=== PATIENT | female | born 1985 | race Caucasian/White ===

== ENCOUNTER 2017-01-04 18:48 | Emergency (ER) | payer OTHER ==
[2017-01-04] MEDS ORDERED: Fentanyl 100 MCG/2 ML VIAL ONE (19:09)
[2017-01-04] MEDS ORDERED: Ondansetron HCl/PF 4 MG/2 ML Vial ONE ×2 (19:10→20:59)
[2017-01-04] MEDS ORDERED: Morphine Sulfate 2 MG/ML SYRINGE ONE ×2 (19:39→19:59)
[2017-01-04 19:41] LABS: Eosinophils 2 % (0-10); Hemoglobin 12.5 g/dL (12.0-16.0); Lymphocytes 43 % (21-51); MDiff Complete? YES; Mean Corpuscular Volume 88.4 fl (81.0-99.0); Monocytes 5 % (0-10); Neutrophil 48 % (42-75); Platelet Count 175 thou/uL (130-400); RBC Distribution Width 11.8 % (11.5-14.5); Reactive Lymphocytes 2 % (0-10); Red Blood Cell (RBC) Count 4.03 mill/uL (4.20-5.40); White Blood Cell (WBC) Count 9.2 thou/uL (4.8-10.8)
[2017-01-04 19:55] LABS: ALT (SGPT) 23 U/L (8-55); AST (SGOT) 20 U/L (5-34); Albumin 4.1 g/dL (3.5-5.0); Alkaline Phosphatase 44 U/L (40-150); Anion Gap 12 mmol/L (10-20); BUN (Urea Nitrogen) 13 mg/dL (7.0-18.7); Bilirubin, Total 0.4 mg/dL (0.2-1.2); Calc. Creatinine Clearance 0 mL/min (70-130); Carbon Dioxide 24 mmol/L (22-29); Chloride 106 mmol/L (98-107); Estimated GFR-MDRD 68; Globulin 2.9 g/dL (2.4-3.5); Glucose 108 mg/dL (70-105); Potassium 3.2 mmol/L (3.5-5.1); Sodium 139 mmol/L (136-145)
[2017-01-04] MEDS ORDERED: Potassium Chloride 20 MEQ TAB ONE (20:00)
[2017-01-04] MEDS ORDERED: Promethazine HCl 25 MG/ML VIAL ONE (21:25)
--- NOTE | 2017-01-04 21:43 | RAD ---
RIGHT FOOT THREE VIEWS 01/04/17 No acute fracture was seen. All bones appeared intact. The medial sesamoid bone of the first MTP vernon nt is bipartite, a common anatomical variant. IMPRESSION: No acute findings. POS: HOME
[2017-01-04] MEDS ORDERED: HYDROcodone/Acetaminophen 5/325 mg Tablet ONE (21:58)
--- NOTE | 2017-01-04 22:00 | RAD ---
RIGHT ELBOW THREE VIEWS 01/04/17 A fracture dislocation is present. The ulna and olecranon are posteriorly dislocated with respect to the distal humerus. The coronoid process of the ulnar lies posterior to the humerus itself. There i s a fracture of at least the radial head/neck, though it is not shown optimally. There is possibly a fracture of the distal humerus but this is less certain. A joint effusion is present as would be ex pected. IMPRESSION: Fracture dislocation involving the radial head and neck. Other fractures may be present but are not shown optimally to be certain. POS: HOME
--- NOTE | 2017-01-04 22:06 | RAD ---
RIGHT ELBOW TWO VIEWS POST REDUCTION 01/04/17 A followup film shows reduction of the dislocation of the elbow. A large bony fragment is present ju st anterior to the joint. It is presumably a portion of the radial head, though I still cannot exclu de injury to the distal humerus itself as well. There is a second smaller fragment seen that is medi al to the elbow and the soft tissues. A splint has been applied. IMPRESSION: Reduction of dislocation. There are still markedly displaced fragments, however. POS: HOME
== END 2017-01-04 22:30 | disposition home or self-care (01) ==
LOC: BURERS 18:48
DX: S52.121A Displaced fracture of head of right radius, initial encounter for closed fracture (principal); S52.131A Displaced fracture of neck of right radius, initial encounter for closed fracture; M25.571 Pain in right ankle and joints of right foot; W10.9XXA Fall (on) (from) unspecified stairs and steps, initial encounter
CPT/HCPCS: 24655; 36415; 80053; 85025; 96361; 96374; 96375; 96376; J2270; J2405; J2550; J3010